=== PATIENT | male | born 2000 | race Hispanic/Latino ===

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

== ENCOUNTER 2020-03-11 18:06 | Emergency (ER) | payer OTHER ==
[~2020-03-11] VITALS: Ht 152.4 cm; Wt 81.6 kg
--- OUTSIDE RECORDS SUMMARY | 2020-03-11 18:58 | XMS REPORT | Continuity of Care Document ---
Author Author [facility] Organization [facility] Address [address] [place] [address] Phone Unavailable Care Team Providers Care Pitch Worker Name Role Phone NONSTAFF PCP Unavailable [place] DRIVER Attconstantine Unavailable Payers Payer Name Policy Type Policy Number Effective Date Expiration Date [facility] [id number] 2013 00:00: 00 [facility] [place] [facility] Problems This patient has no known problems. Allergies, Adverse Reactions, Alerts This patient has no known allergies or adverse reactions. Medications This patient has no known medications. Procedures This patient has no known procedures. Encounters Start Date/Time End Date/Time Encounter Type Admission Type [facility] Care Department Encounter ID Source 2019-02-19 18:32:00 2019-02-19 20:30:00 Departed Emergency Room 1 ANA DRIVER [facility] [id number] [facility] Results Test Description Test Time Test Comments Results Result Comments Source FOOT LEFT COMPLETE 2019-02-19 19:30:00 [facility] [address] [place], [place] [address] Patient Name: KELLE FAGAN MR #: [id number] : 2000 Age/Sex: 19/M Req #: [id number] Adm Physician: Ordered by: ANA DRIVER MD Report #: [id number] Location: ER Room/Bed: Procedure: DX/FOOT LEFT COMPLETE Exam Date: 02/19/19 Exam Time: 1912 REPORT STATUS: Signed Foot complete CPT code: 57097 Indication: pain, crush injury great toe [id number] Technique: A.P., oblique and lateral views of the left foot obtained. Comparison: None Findings: The area of pain is not indicated or marked. Calcaneus is intact and normal in morphology. The midfoot is intact. No evidence of displaced fracture or dislocation involving any of the digits. No radiopaque foreign bodies in the soft tissues. IMPRESSION: No acute traumatic pathology. Signed by: Dr. Aubrey Montenegro MD on 02/19/2019 7:31 PM Dictated By: AUBREY MONTENEGRO MD Electronically Sign ed By: AUBREY MONTENEGRO MD on 02/19/191930 Transcribed By: BRINA on 02/19/191930 COPY TO: ANA DRIVER MD HAND 3+ VIEWS RIGHT 2019-02-19 19:29:00 [place] [address] Patient Name: KELLE FAGAN MR #: [id number] : 2000 Age/Sex: 19/M Req #: [id number] Adm Physician: Ordered by: ANA DRIVER MD Report #: [id number] Location: ER Room/Bed: Procedure: [id number] DX/HAND 3+ VIEWS RIGHT Exam Date: 02/19/19 Exam Time: 1912 REPORT STATUS: Signed Hand Complete CPT code: 14116 Indication:Trauma Technique: Three views of the right hand obtained Comparison: None. Findings: The area of pain was not indicated or marked. Distal radius and ulna appear intact. Carpal bones appear generally well aligned. The digits are intact and normally aligned. No radiopaque foreign bodies or air in the soft tissues. IMPRESSION: No evidence for displaced fracture or current dislocation of the hand. Signed by: Dr. Aubrey Montenegro MD on 02/19/2019 7:30 PM Dictated By: AUBREY MONTENEGRO MD 29 Transcribed By: BRINA on 02/19/191929 COPY TO: ANA DRIVER MD
[2020-03-11] MEDS ORDERED: DEXAMETHASONE SOD PHOS 10 MG/1 ML VIAL IV ONE (19:00)
[2020-03-11] MEDS ORDERED: CEFTRIAXONE SOD 1 GM/NS 50 ML 50 ML IV ONE (19:00)
--- NOTE | 2020-03-11 19:00 | Emergency Department Note ---
History of Present Illnes History of Present Illness Chief Complaint: Eye, Ear, Nose, Throat, Dental History of Present Illness This is a 20 year old male x 3 DAYS SORETHROAT, EAR PAIN. RIGHT NECK LYMPH NODE SWELLING. Historian: Patient Arrival Mode: Car Additional Treatment STENCILER: none Director Business Required: No Onset (how long ago): day(s) (3) Location: right throat Quality: pain Radiation: Reports non-radiation Severity: moderate Onset quality: gradual Duration (how long): day(s) (3) Timing of current episode: constant Progression: worsening Chronicity: new Context: Denies recent illness, Denies recent surgery, Denies trauma/injury Relieving factors: none Exacerbating factors: other (swallowing) Associated symptoms: Reports denies other symptoms Treatments prior to arrival: none Past Medical/Family History Physician Review I have reviewed the patient's past medical and family history. Any updates have been documented here. Past Medical History Recent Fever: No Clinical Suspicion of Infectio: No New/Unexplained Change in Ment: No Past Medical History: None Past Surgical History: None Social History Smoking Cessation: Current every day smoker Alcohol Use: Occasional Any Illegal Drug Use: No Family History Family history of heart diseas: No Other Last Tetanus: UTD Review of Systems Review of Systems Constitutional: Reports no symptoms EENTM: Reports as per HPI Cardiovascular: Reports no symptoms Respiratory: Reports no symptoms Gastrointestinal: Reports no symptoms Genitourinary: Reports no symptoms Musculoskeletal: Reports no symptoms Integumentary: Reports no symptoms Neurological: Reports no symptoms Psychological: Reports no symptoms Endocrine: Reports no symptoms Hematological/Lymphatic: Reports no symptoms Physical Exam Related Data Allergies: Coded Allergies: No Known Allergies (Unverified , 03/11/20) Triage Vital Signs Vital Signs Date Time Temp Pulse Resp B/P (MAP) Pulse Ox O2 Delivery O2 Flow Rate FiO2 03/11/20 18:49 98.2 71 18 115/68 100 Vital signs reviewed: Yes Physical Exam CONSTITUTIONAL Constitutional: Present well-developed, Present well-nourished HENT HENT: Present normocephalic, Present atraumatic, Present nose normal, Present tonsillar excudate, Present pharynx abnormal, Present erythema, Present other (swelling to right tonsil and surrounding tissue, exudate present, possible abscess) HENT L/R: Present left ext ear normal, Present right ext ear normal EYES Eyes: Reports PERRL, Reports conjunctivae normal NECK Neck: Present ROM normal PULMONARY Pulmonary: Present effort normal, Present breath sounds normal CARDIOVASCULAR Cardiovascular: Present regular rhythm, Present heart sounds normal, Present capillary refill normal, Present normal rate GASTROINTESTINAL Abdominal: Present soft, Present nontender, Present bowel sounds normal GENITOURINARY Genitourinary: Present exam deferred SKIN Skin: Present warm, Present dry MUSCULOSKELETAL Musculoskeletal: Present ROM normal NEUROLOGICAL Neurological: Present alert, Present oriented x 3, Present no gross motor or sensory deficits PSYCHOLOGICAL Psychological: Present mood/affect normal, Present judgement normal Results Laboratory Laboratory Laboratory Tests Test 03/11/20 18:58 03/11/20 18:18 White Blood Count 12.53 x10e3/uL (4.8-10.8) Red Blood Count 4.20 x10e6/uL (4.3-5.7) Hemoglobin 12.5 g/dL (14.0-18.0) Hematocrit 37.0 % (38.2-49.6) Mean Corpuscular Volume 88.1 fL (81-99) Mean Corpuscular Hemoglobin 29.8 pg (28-32) Mean Corpuscular Hemoglobin Concent 33.8 g/dL (31-35) Red Cell Distribution Width 11.4 % (11.7-14.4) Platelet Count 222 x10e3/uL (140-360) Neutrophils (%) (Auto) 76.2 % (38.7-80.0) Lymphocytes (%) (Auto) 12.4 % (18.0-39.1) Monocytes (%) (Auto) 9.9 % (4.4-11.3) Eosinophils (%) (Auto) 0.5 % (0.0-6.0) Basophils (%) (Auto) 0.4 % (0.0-1.0) Neutrophils # (Auto) 9.6 (2.1-6.9) Lymphocytes # (Auto) 1.6 (1.0-3.2) Monocytes # (Auto) 1.2 (0.2-0.8) Eosinophils # (Auto) 0.1 (0.0-0.4) Basophils # (Auto) 0.1 (0.0-0.1) Absolute Immature Granulocyte (auto 0.07 x10e3/uL (0-0.1) Sodium Level 142 mmol/L (136-145) Potassium Level 3.4 mmol/L (3.5-5.1) Chloride Level 106 mmol/L (98-107) Carbon Dioxide Level 22 mmol/L (22-29) Anion Gap 17.4 mmol/L (8-16) Blood Urea Nitrogen 8 mg/dL (7-26) Creatinine 0.67 mg/dL (0.72-1.25) Estimat Glomerular Filtration Rate > 60 ML/MIN (60-) BUN/Creatinine Ratio 12 (6-25) Glucose Level 93 mg/dL (74-118) Calcium Level 8.4 mg/dL (8.4-10.2) Group A Streptococcus Screen Positive (NEGATIVE) Lab results reviewed: Yes Imaging Imaging results reviewed: Yes Impressions Procedure: [id number] CT/CT SOFT TISSUE NECK W Exam Date: 03/11/20 Exam Time: 1999 REPORT STATUS: Signed CT SOFT TISSUE NECK W HISTORY: Sore throat, fever COMPARISON: None. TECHNIQUE: Axial CT images were obtained through the neck with intravenous, iodine based contrast. Coronal and sagittal reconstructions obtained from the axial data. One or more of the following dose reduction techniques were used: Automated exposure control, adjustment of the mA and/or kV according to patient size, and/or utilization of iterative reconstruction technique. DISCUSSION: Approximately 3.2 x 2.4 x 1.1 cm (sagittal by AP by transverse) irregular, peripherally enhancing hypodense collection in the right palatine tonsil tracks towards the right glossotonsillar sulcus. There is mild effacement of the right oropharynx. The adenoid tonsils are mildly prominent. The visualized upper aerodigestive tract is otherwise unremarkable. Enlarged bilateral upper jugular chain and lateral retropharyngeal lymph nodes are reactive. No other radiographically significant cervical adenopathy is seen. The thyroid gland is unremarkable. The submandibular and parotid glands are unremarkable. The major cervical vessels are unremarkable. The administrative intern, parapharyngeal, posterior cervical, and perivertebral spaces are unremarkable. The visualized intracranial compartment and orbits are grossly unremarkable. Mild to moderate right frontal sinus, frontonasal recess, and anterior ethmoid air cell mucosal thickening is present. There is a small retention cyst in the right maxillary sinus. No destructive osseous lesions are seen. The upper lungs are unremarkable. IMPRESSION: 1. Approximately 3 cm right tonsillar abscess tracks towards the right glossotonsillar sulcus. 2. Bilateral upper cervical reactive lymphadenopathy (jugular chain and lateral retropharyngeal). 3. Mildly prominent adenoid tonsils. Signed by: Dr. Irving Valle M.D. on 03/11/2020 8:46 PM Dictated By: IRVING VALLE MD 45 Transcribed By: BRINA on 03/11/202045 COPY TO: ROSINA ANDRADE MD~ Assessment & Plan Medical Decision Making MDM pt with swelling, exudates to right tonsil and surrounding tissues cbc, bmp, strep screen ,ct soft tissue neck ordered to eval for strep pharyngitis, aron tonsilar abscess decadron 10 mg iv ordered rocephin 1 gram iv ordered i spoke with dr rainey ent, states to have pt follow up in office tomorrow Assessment & Plan Final Impression: (1) Strep pharyngitis (2) Tonsillar abscess Depart Disposition: HOME, SELF-CARE Last Vital Signs Date Time Temp Pulse Resp B/P (MAP) Pulse Ox O2 Delivery O2 Flow Rate FiO2 03/11/20 18:49 98.2 71 18 115/68 100 Home Meds No Active Prescriptions or Reported Meds Medications in the ED Dexamethasone Sodium Phosphate 10 mg ONCE ONCE IV ; Start 03/11/20 at 19:00; Stop 03/11/20 at 19:01; Status UNV Ceftriaxone Sodium 50 ml @ 100 mls/hr ONCE ONCE IV ; Start 03/11/20 at 19:00; Stop 03/11/20 at 19:29; Status UNV ROSINA ANDRADE MD Mar 11, 2020 19:00
[2020-03-11 19:20] LABS: BASOPHILS # (AUTO) 0.1 (0.0-0.1); BASOPHILS % 0.4 % (0.0-1.0); EOSINOPHILS # (AUTO) 0.1 (0.0-0.4); EOSINOPHILS % 0.5 % (0.0-6.0); HEMOGLOBIN 12.5 g/dL (14.0-18.0); LYMPHOCYTES # (AUTO) 1.6 (1.0-3.2); LYMPHOCYTES % 12.4 % (18.0-39.1); MEAN CORPUSCULAR HEMOGLOBIN 29.8 pg (28-32); MEAN CORPUSCULAR HGB CONC 33.8 g/dL (31-35); MEAN CORPUSCULAR VOLUME 88.1 fL (81-99); MONOCYTES # (AUTO) 1.2 (0.2-0.8); MONOCYTES % 9.9 % (4.4-11.3); NEUTROPHILS # (AUTO) 9.6 (2.1-6.9); NEUTROPHILS % 76.2 % (38.7-80.0); PLATELET COUNT 222 x10e3/uL (140-360); RED CELL DISTRIBUTION WIDTH 11.4 % (11.7-14.4)
[2020-03-11] MEDS ORDERED: SODIUM CHLORIDE 0.9% 50ML 0 ML ONE (19:22)
[2020-03-11] MEDS ORDERED: IOPAMIDOL 370 MG/ML 200 ML INFUS..BTL INJ ONE ×2 (19:22→22:36)
[2020-03-11 19:34] LABS: ANION GAP 17.4 mmol/L (8-16); BLOOD UREA NITROGEN 8 mg/dL (7-26); BUN/CREATININE RATIO 12 (6-25); CALCIUM 8.4 mg/dL (8.4-10.2); CARBON DIOXIDE 22 mmol/L (22-29); CHLORIDE 106 mmol/L (98-107); CREATININE, SERUM 0.67 mg/dL (0.72-1.25); EST GLOMERULAR FILTRATION RATE > 60 ML/MIN (60-); GLUCOSE 93 mg/dL (74-118); POTASSIUM 3.4 mmol/L (3.5-5.1); SODIUM 142 mmol/L (136-145)
--- NOTE | 2020-03-11 20:49 | Diagnostic Imaging Report ---
CT SOFT TISSUE NECK W HISTORY: Sore throat, fever COMPARISON: None. TECHNIQUE: Axial CT images were obtained through the neck with intravenous, iodine based contrast. Coronal and sagittal reconstructions obtained from the axial data. One or more of the following dose reduction techniques were used: Automated exposure control, adjustment of the mA and/or kV according to patient size, and/or utilization of iterative reconstruction technique. DISCUSSION: Approximately 3.2 x 2.4 x 1.1 cm (sagittal by AP by transverse) irregular, peripherally enhancing hypodense collection in the right palatine tonsil tracks towards the right glossotonsillar sulcus. There is mild effacement of the right oropharynx. The adenoid tonsils are mildly prominent. The visualized upper aerodigestive tract is otherwise unremarkable. Enlarged bilateral upper jugular chain and lateral retropharyngeal lymph nodes are reactive. No other radiographically significant cervical adenopathy is seen. The thyroid gland is unremarkable. The submandibular and parotid glands are unremarkable. The major cervical vessels are unremarkable. The water technician, parapharyngeal, posterior cervical, and perivertebral spaces are unremarkable. The visualized intracranial compartment and orbits are grossly unremarkable. Mild to moderate right frontal sinus, frontonasal recess, and anterior ethmoid air cell mucosal thickening is present. There is a small retention cyst in the right maxillary sinus. No destructive osseous lesions are seen. The upper lungs are unremarkable. IMPRESSION: 1. Approximately 3 cm right tonsillar abscess tracks towards the right glossotonsillar sulcus. 2. Bilateral upper cervical reactive lymphadenopathy (jugular chain and lateral retropharyngeal). 3. Mildly prominent adenoid tonsils. Signed by: Dr. Irving Paula M.D. on 03/11/2020 8:46 PM
[2020-03-11 21:06] VITALS: BP 131/74
[2020-03-11] MEDS ORDERED: SODIUM CHLORIDE 0.9% 50ML 50 ML ONE (22:36)
== END 2020-03-11 21:35 | disposition home or self-care (01) ==
LOC: ER 18:55
DX: J36 Peritonsillar abscess (principal); F17.210 Nicotine dependence, cigarettes, uncomplicated
CPT/HCPCS: 36415; 70491; 80048; 83518; 85025; 99284; J0696; J1100; Q9967

== ENCOUNTER 2020-12-15 07:00 | Emergency (ER) | payer OTHER ==
[~2020-12-15] VITALS: Ht 152.4 cm; Wt 81.6 kg
[2020-12-15] MEDS ORDERED: SODIUM CHLORIDE 0.9% 1000ML 1,000 ML IV STA (07:03)
[2020-12-15 07:35] LABS: BASOPHILS # (AUTO) 0.1 (0.0-0.1); BASOPHILS % 0.5 % (0.0-1.0); EOSINOPHILS # (AUTO) 0.1 (0.0-0.4); HEMATOCRIT 39.9 % (38.2-49.6); HEMOGLOBIN 13.3 g/dL (14.0-18.0); LYMPHOCYTES % 17.9 % (18.0-39.1); MEAN CORPUSCULAR HEMOGLOBIN 31.4 pg (28-32); MEAN CORPUSCULAR HGB CONC 33.3 g/dL (31-35); MEAN CORPUSCULAR VOLUME 94.3 fL (81-99); MONOCYTES # (AUTO) 0.9 (0.2-0.8); MONOCYTES % 8.2 % (4.4-11.3); NEUTROPHILS % 71.9 % (38.7-80.0); PLATELET COUNT 225 x10e3/uL (140-360); RED BLOOD COUNT 4.23 x10e6/uL (4.3-5.7); RED CELL DISTRIBUTION WIDTH 11.7 % (11.7-14.4)
[2020-12-15 07:55] LABS: ALANINE AMINOTRANSFERASE 24 IU/L (0-55); ALBUMIN 3.9 g/dL (3.5-5.0); ALBUMIN/GLOBULIN RATIO 1.8 (0.8-2.0); ALKALINE PHOSPHATASE 52 IU/L (40-150); ANION GAP 12.4 mmol/L (8-16); BLOOD UREA NITROGEN 6 mg/dL (7-26); BUN/CREATININE RATIO 8 (6-25); CALCIUM 8.4 mg/dL (8.4-10.2); CARBON DIOXIDE 24 mmol/L (22-29); CHLORIDE 110 mmol/L (98-107); EST GLOMERULAR FILTRATION RATE > 60 ML/MIN (60-); GLUCOSE 79 mg/dL (74-118); POTASSIUM 3.4 mmol/L (3.5-5.1); SODIUM 143 mmol/L (136-145)
[2020-12-15 08:14] LABS: SALICYLATE < 5.0 mg/dL (0-30)
[2020-12-15 09:49] LABS: AMPHETAMINES SCREEN,URINE NEGATIVE (NEGATIVE); BENZODIAZEPINES SCREEN,URINE POSITIVE (NEGATIVE); PHENCYCLIDINE SCREEN,URINE NEGATIVE (NEGATIVE)
[2020-12-15 11:51] VITALS: BP 135/75
== END 2020-12-15 11:55 | disposition home or self-care (01) ==
LOC: ER 07:29
DX: F13.20 Sedative, hypnotic or anxiolytic dependence, uncomplicated (principal); F10.129 Alcohol abuse with intoxication, unspecified
CPT/HCPCS: 36415; 80053; 80307; 80320; 80329 ×2; 85025; 93005; 99284; J7030; U0002

== ENCOUNTER 2024-11-11 18:35 | Emergency (ER) | payer OTHER ==
[~2024-11-11] VITALS: Ht 160 cm; Wt 81.6 kg
[2024-11-11 18:48] VITALS: TEMP 99
[2024-11-11] MEDS ORDERED: SODIUM CHLORIDE 0.9% 1000ML 1,000 ML ONE (19:01)
[2024-11-11 19:11] LABS: BASOPHILS # (AUTO) 0.1 (0.0-0.1); BASOPHILS % 0.6 % (0.0-1.0); EOSINOPHILS # (AUTO) 0.2 (0.0-0.4); EOSINOPHILS % 2.1 % (0.0-6.0); HEMATOCRIT 36.3 % (38.2-49.6); LYMPHOCYTES # (AUTO) 1.4 (1.0-3.2); LYMPHOCYTES % 16.9 % (18.0-39.1); MEAN CORPUSCULAR HGB CONC 33.1 g/dL (31-35); MEAN CORPUSCULAR VOLUME 90.8 fL (81-99); MONOCYTES # (AUTO) 0.5 (0.2-0.8); NEUTROPHILS # (AUTO) 6.1 (2.1-6.9); NEUTROPHILS % 73.7 % (38.7-80.0); PLATELET COUNT 217 x10e3/uL (140-360); RED CELL DISTRIBUTION WIDTH 11.9 % (11.7-14.4); WHITE BLOOD COUNT 8.23 x10e3/uL (4.8-10.8)
[2024-11-11 19:18] VITALS: PULSE 92; RESP 17; O2SAT 100
[2024-11-11 19:40] LABS: ALBUMIN/GLOBULIN RATIO 1.5 (0.8-2.0); ANION GAP 14.7 mmol/L (8-16); BILIRUBIN,TOTAL 0.2 mg/dL (0.2-1.2); CALCIUM 8.3 mg/dL (8.4-10.2); CREATININE, SERUM 0.9 mg/dL (0.72-1.25); POTASSIUM 4.7 mmol/L (3.5-5.1); TOTAL PROTEIN 6.7 g/dL (6.5-8.1)
[2024-11-11] MEDS: SODIUM CHLORIDE 0.9% 1000ML 2,000 ML IV STA (20:36)
[2024-11-11 22:00] VITALS: PULSE 67; RESP 15
[2024-11-11 22:20] VITALS: BP 110/58; PULSE 92; RESP 17; O2SAT 95
== END 2024-11-11 22:22 | disposition home or self-care (01) ==
LOC: ER 18:39
DX: T42.4X1A Poisoning by benzodiazepines, accidental (unintentional), initial encounter (principal); J34.1 Cyst and mucocele of nose and nasal sinus; F17.210 Nicotine dependence, cigarettes, uncomplicated
CPT/HCPCS: 36415; 70450; 80053; 80320; 85025; 94799; 99284; J7030